=== PATIENT | female | born 1970 | race American Indian/Alaskan Native ===

== ENCOUNTER 2016-02-26 10:23 | Emergency (ER) | payer SELFPAY ==
--- NOTE | 2016-02-26 17:48 | Emergency Department Report ---
ED N/V/D HPI - General Chief complaint: Nausea/Vomiting/Diarrhea Stated complaint: CHILLS/VOMITING/FEVER/WEAKNESS Time Seen by Provider: 02/26/16 17:43 Source: patient Mode of arrival: Ambulatory Limitations: No Limitations - History of Present Illness Initial comments: 45-year-old female comes in for nausea vomiting 3 days. Patient reports she's had chills cough bodyaches vomiting or sore throat fever for 2 days prior. Patient reports that she is nauseated and unable to hold anything down last vomited since she's been here at the ER. She's taken TheraFlu drinking Gatorade taken ibuprofen with not much success. She does report that everybody at her job is sick as well. Status post hysterectomy 2003. - Related Data Previous Rx's Medication Instructions Recorded Last Taken Type Ibuprofen [Motrin 600 MG tab] 600 mg PO Q8H PRN #15 tablet 02/26/16 Unknown Rx Ondansetron [Zofran Odt] 4 mg PO Q8HR #12 tab.rapdis 02/26/16 Unknown Rx Allergies Allergy/AdvReac Type Severity Reaction Status Date / Time No Known Allergies Allergy Unverified 02/26/16 17:52 ED Review of Systems ROS: Stated complaint: CHILLS/VOMITING/FEVER/WEAKNESS Other details as noted in HPI Constitutional: chills, fever Eyes: denies: eye pain, eye discharge ENT: throat pain. denies: ear pain Respiratory: cough Gastrointestinal: nausea, vomiting, diarrhea. denies: abdominal pain Musculoskeletal: arthralgia Skin: denies: rash, lesions ED Past Medical Hx - Past Medical History Hx GERD: Yes - Surgical History Additional Surgical History: Hysterectomy. - Social History Smoking Status: Never Smoker Substance Use Type: None - Medications Home Medications: Home Medications Medication Instructions Recorded Confirmed Last Taken Type Ibuprofen [Motrin 600 MG tab] 600 mg PO Q8H PRN #15 tablet 02/26/16 Unknown Rx Ondansetron [Zofran Odt] 4 mg PO Q8HR #12 tab.rapdis 02/26/16 Unknown Rx ED Physical Exam - General Limitations: No Limitations General appearance: alert, in no apparent distress - Head Head exam: Present: atraumatic, normocephalic - Eye Eye exam: Present: normal appearance - ENT ENT exam: Present: mucous membranes moist - Neck Neck exam: Present: normal inspection, full ROM. Absent: tenderness, lymphadenopathy - Respiratory Respiratory exam: Present: normal lung sounds bilaterally. Absent: respiratory distress, wheezes, rales, rhonchi - Cardiovascular Cardiovascular Exam: Present: regular rate, normal rhythm, normal heart sounds - GI/Abdominal GI/Abdominal exam: Present: soft. Absent: distended, tenderness, guarding, rebound - Extremities Exam Extremities exam: Present: normal inspection, full ROM. Absent: tenderness - Neurological Exam Neurological exam: Present: alert, oriented X3 - Psychiatric Psychiatric exam: Present: normal affect, normal mood - Skin Skin exam: Present: warm, dry, intact ED Course Vital Signs 02/26/16 02/26/16 10:54 18:35 Temperature 98.9 F 98.6 F Pulse Rate 86 100 H Respiratory 22 14 Rate Blood Pressure 150/97 O2 Sat by Pulse 100 98 Oximetry ED Medical Decision Making - Medical Decision Making Patient's been evaluated with his provider in fast track. We will give patient Zofran 4 mg. A shot of Toradol for the body aches secondary to vomiting. We will also send a strep rapid to evaluate for strep throat. Patient verbalized understanding at this time. Discussed patient that her strep was negative that her influenza was negative would discharge patient on Zofran and ibuprofen. Recommend patient to follow- up with a primary care provider for further evaluation. Critical care attestation.: If time is entered above; I have spent that time in minutes in the direct care of this critically ill patient, excluding procedure time. ED Disposition Clinical Impression: Sore throat (viral) Nausea & vomiting Qualifiers: Vomiting type: unspecified Vomiting Intractability: unspecified Qualified Code( s): R11.2 - Nausea with vomiting, unspecified Disposition: DISCHARGED TO HOME OR SELFCARE Is pt being admited?: No Does the pt Need Aspirin: No Condition: Stable Instructions: Acute Nausea and Vomiting (ED), Acetaminophen/Dextromethorphan ( By mouth) Additional Instructions: Patient to take [id number] Robitussin-DM for cough. Zofran for the nausea and vomiting. If diarrhea persists more than 3 days she is to return to the ER or her primary care provider. Prescriptions: Ibuprofen [Motrin 600 MG tab] 600 mg PO Q8H PRN #15 tablet PRN Reason: Pain Ondansetron [Zofran Odt] 4 mg PO Q8HR #12 tab.rapdis Referrals: PRIMARY CARE, [Primary Care Provider] - 3-5 Days MANI ANDRADE MD [Staff Physician] - 3-5 Days Forms: Work/School Release Form(ED)
[2016-02-26] MEDS ORDERED: TORADOL IM ONE (17:52)
[2016-02-26] MEDS ORDERED: ZOFRAN ODT PO ONE (17:52)
[2016-02-26 20:26] VITALS: BP 142/90
== END 2016-02-26 20:26 | disposition home or self-care (01) ==
LOC: ED 10:23
DX: J02.8 Acute pharyngitis due to other specified organisms (principal); B97.89 Other viral agents as the cause of diseases classified elsewhere; R11.2 Nausea with vomiting, unspecified; K21.9 Gastro-esophageal reflux disease without esophagitis
CPT/HCPCS: 87116; 87400; 87430; 96372; 99283; J1885; Q0162